=== PATIENT | female | born 1970 | race Caucasian/White ===

== ENCOUNTER 2018-09-30 12:39 | Emergency (ER) | payer MEDICAID | END 2018-09-30 14:52 | disposition home or self-care (01) | LOC: FTE 14:52 | DX: S01.01XA Laceration without foreign body of scalp, initial encounter (principal); W01.190A Fall on same level from slipping, tripping and stumbling with subsequent striking against furniture, initial encounter; Y92.030 Kitchen in apartment as the place of occurrence of the external cause | CPT/HCPCS: 12001; 70450; 99284-25 ==

== ENCOUNTER 2018-10-07 11:39 | Emergency (ER) | payer MEDICAID | END 2018-10-07 13:10 | disposition home or self-care (01) | LOC: FTE 11:39 | DX: Z48.02 Encounter for removal of sutures (principal) | CPT/HCPCS: 99281 ==